=== PATIENT | male | born 1985 | race Caucasian/White ===

== ENCOUNTER 2018-09-29 00:38 | Emergency (ER) | payer BC ==
[~2018-09-29] VITALS: Ht 172.7 cm; Wt 89.4 kg
[2018-09-29 00:48] VITALS: BP_SYST 144
[2018-09-29 01:30] VITALS: BP_SYST 128
== END 2018-09-29 01:30 | disposition home or self-care (01) ==
LOC: SED 00:38
DX: K02.9 Dental caries, unspecified (principal); K08.89 Other specified disorders of teeth and supporting structures; R03.0 Elevated blood-pressure reading, without diagnosis of hypertension
CPT/HCPCS: 99281